=== PATIENT | female | born 1945 | race Caucasian/White ===

== ENCOUNTER 2022-12-28 16:08 | Emergency (ER) | payer OTHER, MEDICARE | END 2022-12-28 17:10 | disposition home or self-care (01) | LOC: NAV ERS 16:08 | DX: S62.306A Unspecified fracture of fifth metacarpal bone, right hand, initial encounter for closed fracture (principal); E11.9 Type 2 diabetes mellitus without complications; E78.00 Pure hypercholesterolemia, unspecified; W18.09XA Striking against other object with subsequent fall, initial encounter; Y92.89 Other specified places as the place of occurrence of the external cause; Z79.84 Long term (current) use of oral hypoglycemic drugs; Z79.899 Other long term (current) drug therapy | CPT/HCPCS: 29125 ==